=== PATIENT | male | born 1960 | race Caucasian/White ===

== ENCOUNTER 2018-10-27 23:02 | Inpatient (IN) | payer MEDICARE, SELFPAY ==
[2018-10-28 01:04] VITALS: BMI 51.3
[2018-10-28 01:25] VITALS: BP 193/98; PULSE 77; RESP 20; TEMP 36.6; O2SAT 92
--- NOTE | 2018-10-28 01:51 | PCM.HP.STD ---
Problem List (1) Acquired lymphedema of leg Status: Chronic (2) Cellulitis Status: Acute Qualifiers: Site of cellulitis: extremity Site of cellulitis of extremity: lower extremity Laterality: right Qualified Code(s): L03.115 - Cellulitis of right lower limb History of Present Illness Date of Admission: 10/28/18 Chief Complaint: cellulitis The patient is a 57 year old male patient with a significant history of lymphedema over the last 4 years of unknown etiology. The patient presents to the [facility] emergency room with recurrent cellulitis of his right lower extremity. He was discharged on the second of this month after having stayed for 3 days for similar complaint. The patient did respond at that time to IV Zosyn and doxycycline. The patient has an open wound of 10 cm in diameter by approximately 8 cm in the right distal lateral extremity that will need attention by wound care. Laboratory studies will be reordered with CBC BMP, blood cultures obtained and will initiate patient on IV antibiotic therapy. Patient currently denies chest pain shortness of breath or chills. The patient arrived in stable condition from the [facility] emergency room. Past Medical History Past Medical History (Chronic Problems): Chronic Problems Acquired lymphedema of leg (Chronic) Allergies aspirin [ASA] Adverse Reaction (Verified 10/28/18 01:05) Anaphylaxis vancomycin Adverse Reaction (Verified 10/28/18 01:05) Anaphylaxis Home Medications: Ambulatory Orders Medication Instructions Recorded Hydrocodone/Acetaminophen [[place] 3 tab PO Q8H PRN PRN 10/28/18 10-325 Tablet] Oxycodone [Oxyir] 15 mg PO 4X/DAY PRN PRN 10/28/18 Smoking Status: Current every day smoker Tobacco Use: Cigarettes - *Family History Maternal History Items: No pertinent history Review of Systems Constitutional: Denies: Chills, Fever, Weight Change HEENT: Denies: Head Aches, Sinus Congestion, Sinus Drainage Cardiovascular: Denies: Chest Pain, Palpitations Respiratory: Denies: Cough, Shortness of breath at rest, Sputum production Gastrointestinal: Denies: Abdominal Pain, Nausea, Vomiting Genitourinary: Denies: Dysuria Musculoskeletal: Reports: Leg Pain, - - bilat leg swelling/lymphadema r>L. Denies: Joint Pain, Joint Tenderness Skin: Reports: Wounds. Denies: Rash Neurological: Denies: Numbness, Tingling, Focal weakness Psychiatric: Denies: Anxiety, Depression, Homicidal Ideations, Suicidal Ideations Hematologic/ Lymphatic: Denies: Easy Bruising, Easy Bleeding VTE Information - Inpt Only VTE Present on Admission: No VTE Mechan Device Prophylaxis: None VTE Pharm Prophylaxis ordered?: Yes Patient Problems: Active and Suspected Problems Cellulitis (Acute) - Physical Exam General: Alert, Oriented x3, Cooperative HEENT: Atraumatic, Normocephalic Neck: Supple Lungs: Clear to auscultation, Normal air movement Cardiovascular: Regular rate, Normal S1, Normal S2, No murmurs Abdomen: Bowel Sounds Present, Soft, Non Tender, Obese Extremities: Diminished Peripheral Pulses, Edema, Tenderness Skin: Ulcer/ Wound - 10x8cm open area on lat right distal extremity, circumferential erythema and warmth no fluctuance or abscess noted Musculoskeletal: Tenderness - rle Neurological: Neuro grossly intact Psych/Mental Status: Normal Affect, Appropriate Vital Signs Temp Pulse Resp BP Pulse Ox 98 F 77 20 H 193/98 H 92 10/28/18 01:25 10/28/18 01:25 10/28/18 01:25 10/28/18 01:25 10/28/18 01:25 Oxygen Delivery Method Room Air Weight: 368 lb Body Mass Index (BMI) 51.3 Assessment/Plan All Active Problems Cellulitis (Acute) Chronic conditions 1. Lymphedema Plan 1. Cellulitis?obtain CBC/BMP, blood cultures x2, initiate IV Zosyn 3.375 IV every 6, doxycycline 100 mg IV every 12 hours, consult wound care assessment 2. DVT prophylaxis?low molecular weight heparin 40 mg subcu daily Code Visit Inpatient E&M: 04153 Init Hosp L3
--- NOTE | 2018-10-28 01:56 | HP.PCM_ITS ---
Problem List (1) Acquired lymphedema of leg Status: Chronic (2) Cellulitis Status: Acute Qualifiers: Site of cellulitis: extremity Site of cellulitis of extremity: lower extremity Laterality: right Qualified Code(s): L03.115 - Cellulitis of right lower limb History of Present Illness Date of Admission: 10/28/18 Chief Complaint: cellulitis The patient is a 57 year old male patient with a significant history of lymphedema over the last 4 years of unknown etiology. The patient presents to the [facility] emergency room with recurrent cellulitis of his right lower extremity. He was discharged on the second of this month after having stayed for 3 days for similar complaint. The patient did respond at that time to IV Zosyn and doxycycline. The patient has an open wound of 10 cm in diameter by approximately 8 cm in the right distal lateral extremity that will need attention by wound care. Laboratory studies will be reordered with CBC BMP, blood cultures obtained and will initiate patient on IV antibiotic therapy. Patient currently denies chest pain shortness of breath or chills. The patient arrived in stable condition from [facility] emergency room. Past Medical History Past Medical History (Chronic Problems): Chronic Problems Acquired lymphedema of leg (Chronic) Allergies aspirin [ASA] Adverse Reaction (Verified 10/28/18 01:05) Anaphylaxis vancomycin Adverse Reaction (Verified 10/28/18 01:05) Anaphylaxis Home Medications: Ambulatory Orders Medication Instructions Recorded Hydrocodone/Acetaminophen [[place] 3 tab PO Q8H PRN PRN 10/28/18 10-325 Tablet] Oxycodone [Oxyir] 15 mg PO 4X/DAY PRN PRN 10/28/18 Smoking Status: Current every day smoker Tobacco Use: Cigarettes - *Family History Maternal History Items: No pertinent history Review of Systems Constitutional: Denies: Chills, Fever, Weight Change HEENT: Denies: Head Aches, Sinus Congestion, Sinus Drainage Cardiovascular: Denies: Chest Pain, Palpitations Respiratory: Denies: Cough, Shortness of breath at rest, Sputum production Gastrointestinal: Denies: Abdominal Pain, Nausea, Vomiting Genitourinary: Denies: Dysuria Musculoskeletal: Reports: Leg Pain, - - bilat leg swelling/lymphadema r>L. Denies: Joint Pain, Joint Tenderness Skin: Reports: Wounds. Denies: Rash Neurological: Denies: Numbness, Tingling, Focal weakness Psychiatric: Denies: Anxiety, Depression, Homicidal Ideations, Suicidal Giovanny ations Hematologic/ Lymphatic: Denies: Easy Bruising, Easy Bleeding VTE Information - Inpt Only VTE Present on Admission: No VTE Mechan Device Prophylaxis: None VTE Pharm Prophylaxis ordered?: Yes Patient Problems: Active and Suspected Problems Cellulitis (Acute) - Physical Exam General: Alert, Oriented x3, Cooperative HEENT: Atraumatic, Normocephalic Neck: Supple Lungs: Clear to auscultation, Normal air movement Cardiovascular: Regular rate, Normal S1, Normal S2, No murmurs Abdomen: Bowel Sounds Present, Soft, Non Tender, Obese Extremities: Diminished Peripheral Pulses, Edema, Tenderness Skin: Ulcer/ Wound - 10x8cm open area on lat right distal extremity, circumferential erythema and warmth no fluctuance or abscess noted Musculoskeletal: Tenderness - rle Neurological: Neuro grossly intact Psych/Mental Status: Normal Affect, Appropriate Vital Signs Temp Pulse Resp BP Pulse Ox 98 F 77 20 H 193/98 H 92 10/28/18 01:25 10/28/18 01:25 10/28/18 01:25 10/28/18 01:25 10/28/18 01:25 Oxygen Delivery Method Room Air Weight: 368 lb Body Mass Index (BMI) 51.3 Assessment/Plan All Active Problems Cellulitis (Acute) Chronic conditions 1. Lymphedema Plan 1. Cellulitis?obtain CBC/BMP, blood cultures x2, initiate IV Zosyn 3.375 IV every 6, doxycycline 100 mg IV every 12 hours, consult wound care assessment 2. DVT prophylaxis?low molecular weight heparin 40 mg subcu daily Code Visit Inpatient E&M: 01279 Init Hosp L3
[2018-10-28] MEDS: oxyCODONE 5 MG Tablet PO ×5 (02:28→19:38)
[2018-10-28] MEDS: 0.9% NaCl Peripheral Flush Adult/Peds IV (02:42)
[2018-10-28 04:47] LABS: Absolute Lymphocyte Count 2.68 X10^3/ul (0.83-4.51); Absolute Neutrophil Count 5.8 X10^3/uL (2.0-7.7); Basophil# 0.06 X10^3/uL; Basophil% 0.6 % (0-1); Eosinophil# 0.84 X10^3/uL; Eosinophils% 8.1 % (0-5); Hematocrit 46.5 % (40-54); Hemoglobin 15.1 g/dl (13.0-16.5); Lymphocyte # 2.68 X10^3/ul (4.0); Lymphocyte % 25.7 % (19-41); Mean Corp Hgb Conc 32.5 g/gl (32-36); Mean Corpuscular Hgb 28.1 pg (27.0-32.0); Mean Corpuscular Volume 86.4 fL (80-94); Mean Platelet Vol. 10.3 fl (6.2-12.0); Monocyte% 8.6 % (0-10); Neutrophil # 5.81 X10^3/uL (2.7-7.7); Neutrophil % 55.8 % (47-70); Platelet Count 273 K/mm3 (150-450); RBC Distribution Width CV 15.6 % (11.6-14.6); Red Blood Count 5.38 M/mm3 (4.6-6.2); White Blood Count 10.4 K/mm3 (4.4-11.0)
[2018-10-28 04:48] LABS: POSITIVE COUNT NO; POSITIVE DIFFERENTIAL NO; POSITIVE MORPHOLOGY NO
[2018-10-28 05:07] LABS: Anion Gap 8 (5-15); BUN 9 mg/dL (7-18); BUN/Creat Ratio 13.2 RATIO (10-20); Calcium,Total 8.6 mg/dL (8.5-10.1); Chloride 107 mmol/L (98-107); Creatinine, Serum 0.68 mg/dL (0.70-1.30); EST Glomerular Filtration Rate 128 mL/min (>60); Est Glom Filt Rate - Afr Amer 155 mL/min (>60); Estimated Creatinine Clearance 127.65 ml/min; Glucose 104 mg/dL (74-106); Magnesium 2.1 mg/dL (1.6-2.6); Potassium 4.1 mmol/L (3.5-5.1); Sodium Level 140 mmol/L (136-145)
[2018-10-28 06:51] LABS: Bedside Glucose 100 mg/dL (70-110)
[2018-10-28 08:34] VITALS: BP 150/68; PULSE 88; RESP 18; TEMP 36.8; O2SAT 93
[2018-10-28] MEDS: Enoxaparin 40 MG/0.4 ML Syringe SC (08:41)
[2018-10-28 11:20] LABS: Bedside Glucose 116 mg/dL (70-110)
--- NOTE | 2018-10-28 11:59 | NURSING ---
wound photo: right lateral lower leg
--- NOTE | 2018-10-28 13:18 | CASEMGMT ---
RN CM Assessment Presentation: Cellulitis, Lymphema Intro role of CM and purpose of RN CM assessment to patient in room. Pt is awake, alert and able to participate in RN CM assessment. Demographics, PCP and Pharmacy verified. Pt has moved here recently from [place] and has not established with physicians. Pt states he takes care of self at home. PCP: No PCP. Pt new to [facility] and has not established with PCP yet. List of [facility] physicians given to pt. F/U after hospitalization will be with [facility] wound center. Pt states he is able to drive to [place] to f/u. Specialists: Wound Center Preferred Pharmacy: [facility], [place], [place] Insurance: [facility] Prescription Benefit: yes LNOK: pt has 2 sons, but requested cousin Sanjay Potter to be listed as contact. Living Arrangements: Lives in one story home. Pt states he is generally independent but due to lymphedema and his weight, he has some difficulty. Transportation: drives or family can assist DME: cane, does not have walker. No oxygen/cpap use per pt. HHC: none. As pt does not have PCP, home health cannot be ordered at this time. Patient DC goals: Home DC PLAN: Anticipate Home on discharge. Requested wound center appointment be made for early next week by personal secretary. Pt states son is able to learn dressing changes to assist at home. Andrew updated that son may need to learn dressing changes prior to dc. Marcelo MOLINAN RN ACM
[2018-10-28 13:44] VITALS: BP 126/78; PULSE 80; RESP 20; TEMP 36.1; O2SAT 94
[2018-10-28 15:12] VITALS: O2SAT 89
[2018-10-28 17:27] LABS: M R Staph aureus DNA By PCR POSITIVE (Negative); Probe Check PASS; Staph aureus DNA By PCR POSITIVE (Negative)
[2018-10-28 20:27] VITALS: BP 152/99; PULSE 88; RESP 18; TEMP 36.4; O2SAT 94
--- NOTE | 2018-10-28 20:58 | NURSING ---
This RN into room for vitals and assessment. PT complains that OxyIR is not controlling his pain. Dr. Maldonado notified. Dr. Macario requested pain medication prescriptions be verified with pharmacy patient uses. Mata Najera verified that the patient has a current prescription for [place] 1-2 tabs Q4H PRN for pain. Mata refused to fill a prescription for OxyIR from out of state. Dr. Macario notified of this. Patient's OXYIR and Tylenol discontinued and [place] started 1-2tab Q6H PRN 1 tab for mild to moderate pain 2 tab for severe pain per Dr. Maldonado's orders. Pt notified of this.
[2018-10-28] MEDS: HYDROcodone Bitartrate/Apap 5/325 Tablet PO (21:30)
[2018-10-29 01:56] VITALS: BP 133/87; PULSE 75; RESP 18; TEMP 36.6; O2SAT 94
[2018-10-29] MEDS: HYDROcodone Bitartrate/Apap 5/325 Tablet PO ×4 (03:36→22:16)
[2018-10-29] MEDS: Ondansetron 4 MG/2 ML Vial IV (06:41)
[2018-10-29 07:45] VITALS: BP 148/82; PULSE 76; RESP 18; TEMP 36.7; O2SAT 95
[2018-10-29] MEDS: Enoxaparin 40 MG/0.4 ML Syringe SC (07:50)
--- NOTE | 2018-10-29 09:07 | PCM.PROGNOTE ---
Patient Problems: Active and Suspected Problems Cellulitis (Acute) Subjective: Chief complaint: Follow-up after admission for right lower extremity cellulitis/infected wound. Patient seen and examined. No acute events overnight. He admits that he feels nauseated, clammy. He denied being dizzy or lightheaded. He denies chest pain or shortness of breath. Denied abdominal pain, vomiting, constipation or diarrhea. His vital signs were checked and was stable. - Physical Exam General: Alert, Oriented x3, Cooperative, No apparent distress HEENT: Atraumatic, PERRLA, EOMI, Normocephalic Oral: Moist Mucosa, No Gingival or Mucosal Lesions/ Ulcerations Neck: Supple, No JVD, Negative Carotid Bruits, Trachea Midline, Thyroid Normal Size and Texture Lungs: Clear to auscultation, No rhonchi, No wheeze, No rales, Diminished Cardiovascular: Regular rate, Regular Rhythm, Normal S1, Normal S2, PMI Normal Abdomen: Bowel Sounds Present, Soft, Non Tender, Non-Distended, No Hepato-splenomegaly, Obese Extremities: No clubbing, No cyanosis, - - Significant bilateral lymphedema, stasis dermatitis. There is a wound on the lateral aspect of the lower one third of the right leg measuring about 7 x 8 cm surrounded by edema, minimal discharge. Skin: No rashes, Ulcer/ Wound Lymphatic: No Cervical, Supraclavicular, or Inguinal Adenopathy Neurological: Cranial nerves II-XII grossly intact, Motor Exam 5/5 strength throughout Psych/Mental Status: Normal Affect, Appropriate, Alert and oriented to time, place, person, mood and affect Vital Signs Temp Pulse Resp BP Pulse Ox 98.0 F 76 18 148/82 H 95 10/29/18 07:45 10/29/18 07:45 10/29/18 07:45 10/29/18 07:45 10/29/18 07:45 Oxygen Flow Rate (L/min) 2 Oxygen Delivery Method Room Air Weight: 367 lb 15.224 oz Body Mass Index (BMI) 51.3 Intake and Output for Last 24 Hours 10/27/18 10/28/18 10/29/18 23:59 23:59 23:59 Intake Total 1353 / 1353 380 / 380 Output Total 200 / 200 Balance 1153 / 1153 380 / 380 Laboratory Tests Past 24 Hrs 10/28/18 11:30 S.aureus Protein A PCR POSITIVE H MRSA (PCR) POSITIVE H POC Glucose 10/28/18 11:17 POC Glucose 116 H Medical Necessity - Tobacco Use Smoking Status: Current every day smoker Tobacco Use: Cigarettes Assessment/Plan All Active Problems Cellulitis (Acute) This is a 57 years old male patient directly admitted from outside facility because of increasing right lower extremity pain, edema, erythema as well as worsening erythema around right lower leg lateral open wound and he was found to have acute cellulitis of the right lower extremity with infected open wound in context of history of severe bilateral lymphedema and recurrent infections of the bilateral lower extremities. #1 acute right lower extremity cellulitis/infected wound: He is on IV Zosyn and doxycycline. He is allergic to vancomycin. His vital signs are stable, afebrile. Routine blood work from yesterday reviewed, was unremarkable. No leukocytosis. Wound MRSA screen was positive. Blood and wound cultures are pending. Wound care nurse consulted and doing the dressing for the wound. Plan to continue same treatment, awaiting final wound culture results. #2 chronic bilateral lymphedema: Patient has significant bilateral lymphedema with stasis dermatitis. Patient will need follow-up with wound care center. #3 chronic pain syndrome: Currently, he is on [place] PRN for pain. At home, he has been on [place] plus OxyIR 4 times a day as needed. Recommend referral to pain management as outpatient. #4 DVT prophylaxis: Subcu Lovenox. This note was generated with [employer] dictation software. It may contain incorrect words, spelling, and punctuation that were not noted in checking the note before signing. Code Visit Inpatient E&M: 71704 Subs Hosp L2
[2018-10-29 13:42] VITALS: BP 130/86; PULSE 72; RESP 18; TEMP 36.6; O2SAT 97
[2018-10-29 20:00] VITALS: BP 155/98; PULSE 76; RESP 18; TEMP 36.8; O2SAT 96
--- NOTE | 2018-10-29 22:53 | PCM.PN.BLA ---
Progress Note Committed by nursing staff the patient have had about 10 attempts of IV. Patient receiving IV doxycycline and Zosyn for cellulitis/wound infection. Patient is refusing any more IV attempts. Will change IV doxycycline to p.o. Wound culture showed staph aureus. We will put patient on linezolid for now.
--- NOTE | 2018-10-29 23:30 | NURSING ---
responding to pt's call light. pt angry and states i wan't the papers i'm going home. pt has had multiple attempts for IV access unsuccessful and he is upset about being poked so many times. pt c/o pain and that we are not controlling his pain adequately. this RN explained to pt that the physician had been notified at the beginning of the shift and new pain med orders were given but required the IV access. this RN explained to pt that physician had been notified about no iv access and he was working for a new plan. pt tells this RN he will leave in 30 min.
--- NOTE | 2018-10-29 23:55 | NURSING ---
this RN entered pt's room and pt is dressed and ready to leave. informed pt that PO antibiotics had been ordered d/t no IV access. pt continues to say he is leaving and would be more comfortable in his home.
--- NOTE | 2018-10-30 00:08 | DS.PCM_ITS ---
Discharge Date and Diagnosis - Problem List Patient Problems: Active and Suspected Problems Cellulitis (Acute) Date of Admission: 10/28/18 - Primary Discharge Diagnosis Active and Suspected Problems Cellulitis (Acute) - Secondary Discharge Diagnosis Chronic Problems Chronic pain syndrome (Chronic) Acquired lymphedema of leg (Chronic) Hospital Course and Treatment Consultations 10/28/18 02:12 Consult: Onc/Wound/supply requirements officer Routine Comment: Summary of Care Provided: Patient decided to leave AMA because of poor pain control. IV Toradol was originally ordered in addition to his pain regimen. Patient could not receive the IV Toradol because of inability to have any IV access after many attempts. Antibiotics had being changed to pO because of no IV access. Discussion was made to escalate his hospital oral pain medicine since he complained of head to toe pain but with decrease pain medicine here than he was receiving at home. A decision was made to escalate his narcotic pain medications. However, patient decided to leave AMA. Patient Problems: Active and Suspected Problems Cellulitis (Acute) - Physical Exam Vital Signs Temp Pulse Resp BP Pulse Ox 98.2 F 76 18 155/98 H 96 10/29/18 20:00 10/29/18 20:00 10/29/18 20:00 10/29/18 20:00 10/29/18 20:00 Oxygen Flow Rate (L/min) 2 Oxygen Delivery Method Room Air Weight: 166.9 kg Body Mass Index (BMI) 51.3 Intake and Output for Last 24 Hours 10/28/18 10/29/18 10/30/18 23:59 23:59 23:59 Intake Total 1353 / 1353 1476 / 1476 Output Total 200 / 200 Balance 1153 / 1153 1476 / 1476 Microbiology Past 72 Hours 10/28/18 11:30 Gram Stain - Final Wound - Leg, Right Wound Culture - Preliminary Staphylococcus aureus Home Medications: Medications to take at Discharge Hydrocodone/Acetaminophen [[place] 10-325 Tablet] 1 - 2 tab PO Q4H PRN PRN 10/28/18 Oxycodone [Oxyir] 15 mg PO 4X/DAY PRN PRN 10/28/18 Please Follow Up With: [facility] Medical Necessity - Tobacco Use Smoking Status: Current every day smoker Tobacco Use: Cigarettes Meaningful Use Info Meaningful Use Diagnoses (Choose all that apply): None applicable
--- NOTE | 2018-10-30 00:10 | NURSING ---
this RN entered pt's room with hospitalist to discuss leaving AMA. pt discusses home pain regimen and frustration r/t IV attempts. hospitalist explained new plan. pt still wishes to leave at this time.
== END 2018-10-30 00:35 | disposition left against medical advice (07) | DRG 603 ==
PROVIDERS: Admitting Provider Family Medicine; Visit Provider Hospitalist
DX: L03.115 Cellulitis of right lower limb (principal); Z68.43 Body mass index [BMI] 50.0-59.9, adult; I89.0 Lymphedema, not elsewhere classified; E66.01 Morbid (severe) obesity due to excess calories; I87.2 Venous insufficiency (chronic) (peripheral); G89.4 Chronic pain syndrome; B95.62 Methicillin resistant Staphylococcus aureus infection as the cause of diseases classified elsewhere
CPT/HCPCS: 36415; 80048; 82962; 83735; 85025; 87040; 87070; 87077; 87186; 87205; 87640; 97162; 97165; 97802; 99406; A4216; J2405